=== PATIENT | male | born 1975 | race Caucasian/White ===

== ENCOUNTER 2017-04-30 15:00 | Outpatient (CLI) | payer BC | END 2017-04-30 15:01 | disposition home or self-care (01) | LOC: LAB.R 15:00 | PROVIDERS: ATTEND Nurse Practitioner Family | DX: M54.5 Low back pain (principal) | CPT/HCPCS: 80307 ==

== ENCOUNTER 2017-11-23 10:45 | Outpatient (CLI) | payer BC, OTHER | END 2017-11-23 10:46 | disposition home or self-care (01) | LOC: LAB.R 10:45 | PROVIDERS: ATTEND Nurse Practitioner Family | DX: Z79.891 Long term (current) use of opiate analgesic (principal) | CPT/HCPCS: 80307; 80321; 80354; 80362; 81599 ==

== ENCOUNTER 2018-07-01 08:00 | Outpatient (CLI) | payer OTHER ==
[2018-07-02 12:35] LABS: AMPHETAMINE SCREEN,URINE NEGATIVE (NEGATIVE); BENZODIAZEPINES SCREEN, URINE NEGATIVE (NEGATIVE); COCAINE SCREEN URINE NEGATIVE (NEGATIVE); METHADONE SCREEN, URINE NEGATIVE (NEGATIVE); METHAMPHETAMINES SCREEN, URINE NEGATIVE (NEGATIVE); MUDS CUTOFF CONCENTRATIONS CUTOFF CONC BELOW:; OPIATE SCREEN, URINE NEGATIVE (NEGATIVE); OXYCODONE SCREEN, URINE NEGATIVE (NEGATIVE); PROPOXYPHENE SCREEN, URINE NEGATIVE (NEGATIVE); TRICYCLIC ANTIDEPRESSANT,URINE NEGATIVE (NEGATIVE)
== END 2018-07-01 23:59 ==
LOC: LAB.R 08:00
PROVIDERS: ATTEND Nurse Practitioner Family
DX: Z79.891 Long term (current) use of opiate analgesic (principal); M17.12 Unilateral primary osteoarthritis, left knee
CPT/HCPCS: 80306

== ENCOUNTER 2018-10-24 10:43 | Outpatient (CLI) | payer OTHER ==
[2018-10-24 18:27] LABS: BASOPHILS % (AUTO) 0.6 %; EOSINOPHILS # (AUTO) 0.2 10^3/uL (0.0-0.7); EOSINOPHILS % (AUTO) 2.6 %; HGB - HEMOGLOBIN 14.9 g/dL (14.0-18.0); LYMPHOCYTES # (AUTO) 1.5 10^3/uL (1.5-3.5); LYMPHOCYTES % (AUTO) 24.4 %; MEAN CORPUSCULAR HEMOGLOBIN 30.3 pg (27.0-31.0); MEAN CORPUSCULAR HGB CONC 33.4 g/dL (32.0-36.0); MEAN CORPUSCULAR VOLUME 90.9 fL (80.0-94.0); MEAN PLATELET VOLUME 8.3 fL (7.4-11.4); MONOCYTES # (AUTO) 0.6 10^3/uL (0.0-1.0); MONOCYTES % (AUTO) 9.8 %; NEUTROPHILS # (AUTO) 3.9 10^3/uL (1.5-6.6); NEUTROPHILS % (AUTO) 62.6 %; PLT - PLATELET COUNT 268 10^3/uL (130-450); RED BLOOD COUNT 4.92 10^6/uL (4.70-6.10); RED CELL DISTRIBUTION WIDTH 12.8 % (12.0-15.0); WHITE BLOOD COUNT 6.2 x10^3/uL (4.8-10.8)
[2018-10-24 18:55] LABS: ALBUMIN 4.4 g/dL (3.2-5.5); ALBUMIN/GLOBULIN RATIO 1.5 (1.0-2.2); BILIRUBIN,TOTAL 0.9 mg/dL (0.2-1.0); CALCIUM 9.4 mg/dL (8.5-10.3); CREATININE 0.9 mg/dL (0.6-1.2); TOTAL PROTEIN 7.3 g/dL (6.7-8.2)
== END 2018-10-24 10:44 | disposition home or self-care (01) ==
LOC: LAB.F 10:43
PROVIDERS: ATTEND Internal Medicine
DX: R53.83 Other fatigue (principal)
CPT/HCPCS: 36415; 80053; 84443; 85025

== ENCOUNTER 2019-06-30 10:52 | Outpatient (CLI) | payer OTHER ==
--- NOTE | 2019-07-01 15:33 | XRAY Report ---
Reason: UNILATERAL PRIMARY OSTEOARTHRITIS, LEFT KNEE Procedure Date: 06/30/2019 Accession Number: [id number] / [id number] Procedure: XRS - Knee 4 View LT CPT Code: FULL RESULT: EXAM: LEFT KNEE RADIOGRAPHY EXAM DATE: 06/30/2019 11:04 AM. CLINICAL HISTORY: UNILATERAL PRIMARY OSTEOARTHRITIS, LEFT KNEE. COMPARISON: Left knee radiography from 12/21/2011. TECHNIQUE: 4 views. FINDINGS: Bones: Cortical sclerosis, slight cortical deformity, and slight cortical depression at the lateral tibial plateau from previous old fracture. No acute fracture or bone lesions. Joints: The joint spaces are preserved. No effusion. No subluxations. Soft Tissues: Normal. No soft tissue swelling. IMPRESSION: 1. Old healed lateral tibial plateau fracture. [facility]
== END 2019-06-30 10:53 | disposition home or self-care (01) ==
LOC: DI.S 10:52
PROVIDERS: ATTEND Registered Nurse
DX: M17.12 Unilateral primary osteoarthritis, left knee (principal)

== ENCOUNTER 2019-07-29 11:23 | Outpatient (CLI) | payer OTHER ==
[2019-07-29 17:20] LABS: BASOPHILS # (AUTO) 0.1 10^3/uL (0.0-0.1); BASOPHILS % (AUTO) 0.6 %; EOSINOPHILS # (AUTO) 0.4 10^3/uL (0.0-0.7); EOSINOPHILS % (AUTO) 4.9 %; HGB - HEMOGLOBIN 15.9 g/dL (14.0-18.0); LYMPHOCYTES # (AUTO) 2.3 10^3/uL (1.5-3.5); LYMPHOCYTES % (AUTO) 29.1 %; MEAN CORPUSCULAR HEMOGLOBIN 30.3 pg (27.0-31.0); MEAN CORPUSCULAR HGB CONC 33.6 g/dL (32.0-36.0); MEAN CORPUSCULAR VOLUME 90.3 fL (80.0-94.0); MONOCYTES # (AUTO) 0.9 10^3/uL (0.0-1.0); MONOCYTES % (AUTO) 10.9 %; NEUTROPHILS # (AUTO) 4.2 10^3/uL (1.5-6.6); NEUTROPHILS % (AUTO) 53.9 %; PLT - PLATELET COUNT 316 10^3/uL (130-450); RED BLOOD COUNT 5.24 10^6/uL (4.70-6.10); RED CELL DISTRIBUTION WIDTH 12.7 % (12.0-15.0); WHITE BLOOD COUNT 7.9 x10^3/uL (4.8-10.8)
[2019-07-29 17:47] LABS: ALBUMIN 4.8 g/dL (3.2-5.5); ALBUMIN/GLOBULIN RATIO 1.7 (1.0-2.2); BILIRUBIN,TOTAL 0.9 mg/dL (0.2-1.0); CALCIUM 9.6 mg/dL (8.5-10.3); CREATININE 0.8 mg/dL (0.6-1.2); TOTAL PROTEIN 7.7 g/dL (6.7-8.2)
[2019-07-29 17:51] LABS: BILIRUBIN,URINE NEGATIVE (NEGATIVE); GLUCOSE, URINE (UA) NEGATIVE (NEGATIVE); KETONES,URINE (UA) NEGATIVE (NEGATIVE); LEUKOCYTE ESTERASE, URINE NEGATIVE (NEGATIVE); NITRITE,URINE NEGATIVE (NEGATIVE); OCCULT BLOOD,URINE NEGATIVE (NEGATIVE); PROTEIN,URINE NEGATIVE (NEGATIVE); UROBILINOGEN,URINE 0.2 (NORMAL) E.U./dL (NORMAL)
[2019-07-29 18:05] LABS: BACTERIA,URINE None Seen /HPF (None Seen); CLARITY,URINE CLEAR (CLEAR); RBC,URINE None Seen /HPF (0-5); SQUAMOUS EPITHELIAL CELL,UR NONE SEEN (<= Few)
--- NOTE | 2019-07-30 09:49 | XRAY Report ---
Reason: LOW BACK PAIN, CHRONIC, M54.5 Procedure Date: 07/29/2019 Accession Number: [id number] / [id number] Procedure: XRS - Lumbar Spine 2 View CPT Code: Final Report FULL RESULT: EXAM: LUMBOSACRAL SPINE RADIOGRAPHY EXAM DATE: 07/29/2019 11:35 AM. CLINICAL HISTORY: Low back pain, chronic, M54.5. COMPARISONS: None. TECHNIQUE: 3 views. FINDINGS: Alignment: Normal. No spondylolisthesis or scoliosis. Bones: Five [id number] lumbar vertebral bodies are present. No fractures or bone lesions. Disks: Moderate to severe L5-S1 disk space narrowing with associated vacuum disk phenomenon and moderate vertebral body spurring. Minimal vertebral body spurring at other levels. Facets: No degenerative changes. Sacroiliac Joints: Unremarkable. Soft Tissues: Normal. The visualized bowel gas pattern is normal. IMPRESSION: 1. No definite acute abnormality. 2. Moderate to severe L5-S1 degenerative disk disease. [facility]
== END 2019-07-29 11:24 | disposition home or self-care (01) ==
LOC: DI.S 11:23
PROVIDERS: ATTEND Family Medicine
DX: M51.37 Other intervertebral disc degeneration, lumbosacral region (principal); R10.9 Unspecified abdominal pain; N50.819 Testicular pain, unspecified
CPT/HCPCS: 36415; 72100; 80053; 81001; 84153; 85025

== ENCOUNTER 2019-08-03 16:39 | Outpatient (CLI) | payer OTHER ==
--- NOTE | 2019-08-03 22:35 | Ultrasound Report ---
Reason: TESTICULAR PAIN Procedure Date: 08/03/2019 Accession Number: [id number] / [id number] Procedure: US - Testicle CPT Code: Final Report FULL RESULT: EXAM: SCROTAL ULTRASOUND EXAM DATE: 08/03/2019 06:11 PM. CLINICAL HISTORY: Testicular pain. Bilateral testicular pain. 6 years status post vasectomy, but worsening for 3 weeks. COMPARISON: None. TECHNIQUE: Real-time scanning was performed with static images obtained. Color-flow images were utilized. FINDINGS: The right testicle measures 5.3 x 2.4 x 3.5 cm. Multiple microlithiasis seen diffusely in the right testicle. The blood flow appears within normal limits. No evidence for testicular mass or torsion. Small right hydrocele with minimal debris. The right epididymis measures 4.7 x 1.1 x 0.9 cm. Mild heterogeneity of the epididymis consistent with vasectomy. Vascularity is within normal limits. The left testicle measures 5.4 x 2.2 x 3.4 cm. Multiple microlithiasis seen diffusely in the left testicle. Blood flow appears within normal limits in the left testicle. No evidence for testicular torsion or mass. Minimal left hydrocele. The left epididymis measures 4.5 x 1.2 x 0.6 cm and appears mildly heterogeneous consistent with vasectomy. Vascularity appears within normal limits. Mild left varicocele measuring 3.2 mm. IMPRESSION: 1. Bilateral testicular microlithiasis. Recommend annual physical exam to screen for testicular mass. No evidence for testicular mass or torsion. 2. No evidence for acute orchitis or acute epididymitis. 3. Minimal bilateral hydroceles. 4. Small left varicocele. [facility]
== END 2019-08-03 16:40 | disposition home or self-care (01) ==
LOC: DI 16:39
PROVIDERS: ATTEND Family Medicine
DX: N50.89 Other specified disorders of the male genital organs (principal); N43.3 Hydrocele, unspecified
CPT/HCPCS: 76870

== ENCOUNTER 2019-11-12 12:24 | Outpatient (CLI) | payer OTHER ==
--- NOTE | 2019-11-12 16:53 | CARDIAC PROCEDURE NOTE ---
DATE OF SERVICE: 11/12/2019 Physician: Jocelyn Davenport MD, [facility] INDICATION: Left bundle branch block, acute fatigue, recurrent palpitations. RISK FACTORS: Male gender, family history of early heart disease. DESCRIPTION OF PROCEDURE: After signing informed consent, the patient underwent a Vini-protocol treadmill stress test with nuclear myocardial perfusion imaging. RESTING HEART RATE: 55. PEAK HEART RATE: 175 (101% predicted maximum heart rate for age). RESTING BLOOD PRESSURE: 118/79. PEAK BLOOD PRESSURE: 160/91. The patient exercised for 9 minutes on a Vini-protocol treadmill stress test. He achieved a peak heart rate of 175 (101% PMHR) and 10.2 mets. The patient had moderate shortness of breath and developed no chest pain. He had no fatigue or complaints of palpitations. Blood pressure response was appropriate. Oxygen saturation was 97-99% on room air throughout the test. RESTING EKG: Sinus bradycardia at a rate of 55, left bundle branch block. EKG AT PEAK: Unable to comment on ST segments or T waves in the presence of LBBB. Rare PVCs and 1 ventricular couplet occurred in early recovery. SUMMARY 1. Abnormal resting EKG with left bundle branch block. 2. Unable to comment on ST segments or T waves in the presence of LBBB during exercise. 3. Nuclear images reported separately. 4. This patient's cardiac risk based on all the above: Moderate-High. cc: Dania Charles NP TD: 11/12/2019 16:41 MTDD
--- NOTE | 2019-11-13 08:18 | Nuclear Medicine Report ---
Reason: FATIGUE, PALPITATIONS, BUNDLE BRANCH BLOCK Procedure Date: 11/12/2019 Accession Number: [id number] / [id number] Procedure: NM - Myocardial Perfusion STR/RST CPT Code: Final Report FULL RESULT: EXAM: SINGLE-ISOTOPE PHARMACOLOGICAL STRESS TEST WITH REGADENOSON. SINGLE-ISOTOPE AND ONE-DAY REST/STRESS MYOCARDIAL PERFUSION SCANS WITH TOMOGRAPHIC IMAGING, QUANTITATIVE ANALYSIS, WALL MOTION ANALYSIS AND CALCULATION OF EJECTION FRACTION. EXAM DATE: 11/12/2019 07:17 PM. CLINICAL HISTORY: Fatigue, palpitations, bundle branch block. COMPARISON: None. TECHNIQUE: After the intravenous administration of 9.0 mCi of Tc-99m sestamibi, a rest myocardial perfusion scan was done with tomography. Motion correction was applied when appropriate. After an appropriate delay, pharmacological stress was performed with the infusion of 0.4 mg regadenoson per protocol. According to protocol, 40.9 mCi of Tc-99m sestamibi was injected for stress myocardial perfusion scan. Motion correction was applied when appropriate. Gated tomographic images were obtained for wall motion analysis and computation of left ventricular ejection fraction. FINDINGS: There is a large fixed perfusion defect involving the apex, septum, and most of the anterior and inferior merritt. There are no reversible perfusion defects. There is moderate hypokinesia of the apex and septum. There is mild hypokinesia of the anterior wall and inferior wall. There is moderate enlargement of the ventricular chamber on both resting and stress images. The left ventricular end-diastolic volume is 98 cc. The left ventricular end-systolic volume is 44 cc. The left ventricular ejection fraction is calculated to be 56%. IMPRESSION: 1. 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 No reversible perfusion defect. 2. Left ventricular ejection fraction of 56%. 3. There is moderate hypokinesia of the septum and apex. There is mild hypokinesia of the anterior and inferior merritt. 4. Moderate left ventricular cavity size which does not alter with stress. Please correlate findings with stress ECG tracings and procedure notes. [facility]
== END 2019-11-12 12:25 | disposition home or self-care (01) ==
LOC: DI 12:24
PROVIDERS: ATTEND Registered Nurse
DX: R00.2 Palpitations (principal); R53.83 Other fatigue; I44.7 Left bundle-branch block, unspecified
CPT/HCPCS: 78452; 93017; A9500

== ENCOUNTER 2021-03-16 11:20 | Outpatient (CLI) | payer OTHER | END 2021-03-16 23:59 | disposition home or self-care (01) | LOC: COV 11:20 | PROVIDERS: ATTEND Family Medicine | DX: R53.83 Other fatigue (principal); Z20.822 Contact with and (suspected) exposure to COVID-19 ==